=== PATIENT | male | born 1985 | race American Indian/Alaskan Native ===

== ENCOUNTER 2017-03-28 17:28 | Emergency (ER) | payer OTHER ==
[2017-03-28 17:39] VITALS: BP 150/80
--- NOTE | 2017-03-28 17:57 | Emergency Department Report ---
ED Head Trauma HPI - General Chief complaint: Head Injury Stated complaint: HEADACHE Time Seen by Provider: 03/28/17 17:53 Source: patient Mode of arrival: Ambulatory Limitations: No Limitations - Related Data Allergies/Adverse reactions: Allergies Allergy/AdvReac Type Severity Reaction Status Date / Time No Known Allergies Allergy Unverified 03/28/17 17:35 ED Review of Systems ROS: Stated complaint: HEADACHE Other details as noted in HPI Comment: All other systems reviewed and negative Neurological: headache ED Past Medical Hx - Past Medical History Previous Medical History?: No - Surgical History Past Surgical History?: No - Social History Smoking Status: Never Smoker Substance Use Type: None ED Physical Exam - General Limitations: No Limitations General appearance: alert - Head Head exam: Present: atraumatic - Eye Eye exam: Present: PERRL, EOMI Pupils: Present: normal accommodation - ENT ENT exam: Present: mucous membranes moist - Neck Neck exam: Present: normal inspection - Respiratory Respiratory exam: Present: normal lung sounds bilaterally - Cardiovascular Cardiovascular Exam: Present: regular rate - GI/Abdominal GI/Abdominal exam: Present: soft - Rectal Rectal exam: Present: deferred - Extremities Exam Extremities exam: Present: normal inspection - Back Exam Back exam: Present: normal inspection, full ROM - Neurological Exam Neurological exam: Present: alert, oriented X3, CN II-XII intact, normal gait, reflexes normal - Psychiatric Psychiatric exam: Present: normal affect, normal mood - Skin Skin exam: Present: warm, dry, intact, other (SWELLING AND BRUISE L FRONTAL- TEMP AREA) ED Course Vital Signs 03/28/17 17:35 Temperature 98.1 F Pulse Rate 88 Respiratory 18 Rate Blood Pressure 150/80 O2 Sat by Pulse 100 Oximetry - Reevaluation(s) Reevaluation #1: 03/28/17 18:38 TO ER W YOUNG SP HITTING HEAD ON WHILE WORKING ON CARE VSS NEURO INTACT NO LOC AT THE TIME CT NEG Reevaluation #2: 03/28/17 18:51 PT UPDATED DC HOME W DC POC NEURO INTACT - Radiology Data Radiology results: report reviewed - Medical Decision Making CT N - Differential Diagnosis RO SUBDURAL - Core Measures AMI Core Measures Followed: No - NEXUS Criteria Focal neurological deficit present: No Midline spinal tenderness present: No Altered level of consciousness: No Intoxication present: No Distracting injury present: No NEXUS results: C-Spine can be cleared clinically by these results. Imaging is not required. Critical care attestation.: If time is entered above; I have spent that time in minutes in the direct care of this critically ill patient, excluding procedure time. ED Disposition Clinical Impression: CHI (closed head injury) Disposition: DC-01 TO HOME OR SELFCARE Is pt being admited?: No Does the pt Need Aspirin: No Condition: Stable Instructions: Minor Head Injury (ED) Additional Instructions: ICE REST FOLLOW UP PCP IF PERSISTS Referrals: PRIMARY CARE, [Primary Care Provider] - 3-5 Days KATIE MADRID MD [Referring] - 3-5 Days Time of Disposition: 18:39
--- NOTE | 2017-03-28 18:33 | Cat Scan Report ---
FINAL REPORT EXAM: CT HEAD/BRAIN WO CON HISTORY: HEADACHE SP CHI 5 D AGO TECHNIQUE: CT head without contrast PRIORS: None. FINDINGS: No acute intra-axial or extra-axial hemorrhage is identified. There is no evidence of midline shift or mass effect. The ventricles and sulci are within normal limits. Smalls-white matter differentiation is intact. No acute parenchymal abnormalities seen. Bony calvarium is grossly intact. Visualized portions of the mastoids and paranasal sinuses are unremarkable. IMPRESSION: Negative CT head
--- NOTE | 2017-03-28 19:46 | Event Note ---
Date: 03/28/17 ADDENDUM HPI TO ER TODAY P HITTING HIS HEAD ON THURSDAY WHILE WORKING ON HIS CAR NO LOC NO N/V JUST CONCERNED W A SLIGHT YOUNG HE IS PLAYING ON PHONE DURING EXAM HE WAS WORRIED P GETTING ON Bin1 ATE AMBULATORY A/O X 4 HIT HIS HEAD L FRONTAL TEMP AREA NO OTORRHEA OR RHINOREA AT TIME NOTHING MAKES BETTER NOTHING MAKES WORSE PAIN 04/22 NOW
== END 2017-03-28 18:50 | disposition home or self-care (01) ==
LOC: ED 17:28
DX: S09.90XA Unspecified injury of head, initial encounter (principal); X58.XXXA Exposure to other specified factors, initial encounter; Y93.89 Activity, other specified; Y92.89 Other specified places as the place of occurrence of the external cause; Y99.8 Other external cause status
CPT/HCPCS: 70450

== ENCOUNTER 2017-04-22 17:33 | Emergency (ER) | payer OTHER ==
[2017-04-22 17:42] VITALS: BP 132/85
[2017-04-22 18:41] LABS: Bilirubin,Urine NEG (Negative); Blood,Urine NEG (Negative); Color,Urine Straw (Yellow); Nitrite,Urine NEG (Negative); Protein,Urine <15 mg/dL mg/dL (Negative); RBC,Urine < 1.0 /HPF (0.0-6.0); Urobilinogen,Urine < 2.0 mg/dL (<2.0)
[2017-04-22 18:47] LABS: WBC,Urine < 1.0 /HPF (0.0-6.0)
--- NOTE | 2017-04-22 21:45 | Emergency Department Report ---
HPI - General Chief Complaint: Upper Respiratory Infection Time Seen by Provider: 04/22/17 20:35 - HPI HPI: This is a 31-year-old male presents to ED complaining of fever cough and sore throat that started Thursday 5 days ago. Patient states he was recently taking care of this girlfriend that had the flu. Patient states on Thursday and Thursday and Thursday he had fever that resolved. Patient states he had some coughing but that resolved as well. Patient states his minimal sore throat but no other symptoms. He states he is able to tolerate food and fluid appropriately. Patient does states that her extremity eats certain foods such as fast food he feels a bit sick. Patient states both his parents have diabetes and he is worried that he might get diabetes. He denies fevers/chills/nausea/vomiting/abdominal pain/chest pain/shortness of breath/headache/dizziness ED Past Medical Hx - Past Medical History Previous Medical History?: No - Surgical History Past Surgical History?: No - Social History Smoking Status: Never Smoker Substance Use Type: Alcohol - Medications Home Medications: Home Medications Medication Instructions Recorded Confirmed Last Taken Type Ascorbic Acid [Vitamin C] 500 mg PO Q12H #30 tablet 04/22/17 Unknown Rx D-Methorphan/PE/Acetaminophen 1 each PO Q6H #20 tablet 04/22/17 Unknown Rx [Tylenol Cold Multi-Symp Caplet] Zinc 50 mg PO DAILY #5 tablet 04/22/17 Unknown Rx ED Review of Systems ROS: Stated complaint: FEELING SICK Other details as noted in HPI Constitutional: denies: chills, fever Eyes: denies: eye pain, eye discharge, vision change ENT: denies: ear pain, throat pain Respiratory: denies: cough, shortness of breath, wheezing Cardiovascular: denies: chest pain, palpitations Endocrine: no symptoms reported Gastrointestinal: denies: abdominal pain, nausea, diarrhea Genitourinary: denies: urgency, dysuria Musculoskeletal: denies: back pain, joint swelling, arthralgia Skin: denies: rash, lesions Neurological: denies: headache, weakness, paresthesias Psychiatric: denies: anxiety, depression Hematological/Lymphatic: denies: easy bleeding, easy bruising Physical Exam - Physical Exam Vital Signs: Vital Signs 04/22/17 17:38 Temperature 98.4 F Pulse Rate 79 Respiratory 18 Rate Blood Pressure 132/85 O2 Sat by Pulse 98 Oximetry Physical Exam: GENERAL: Alert and oriented x3, no apparent distress, Normal Gait, atraumatic. HEAD: Head is normocephalic and a-traumatic. EYES: Conjunctivae are clear bilaterally, non-erythematous. Pupils are equal, round, and reactive to light and accommodation. NOSE: Nose symetrical, Nontender,Nares appeared normal. MOUTH:Mouth is well hydrated and without lesions. Tonsils nonerythematous or swollen, Uvula midline, Tongue not elevated. Mucous membranes are moist. Posterior pharynx clear, no exudate or lesions. Patent airways. NECK: Supple. Non edematous, No lymphadenopathy or thyromegaly. No C-spine tenderness LUNGS: Symetrical with respiration, No wheezing, no rales or crackles, CTAB. HEART: S1, S2 present, regular rate and rhythm without murmur, no rubs, no gallops. Non tender to palpation BACK: Full range of motion, no spinal tenderness, nontender to palpation. NEUROLOGIC: The patient is cooperative with no focal neurologic deficits. SKIN: Warm and dry, No lesions, No ulceration or induration present. ED Course Vital Signs 04/22/17 17:38 Temperature 98.4 F Pulse Rate 79 Respiratory 18 Rate Blood Pressure 132/85 O2 Sat by Pulse 98 Oximetry ED Medical Decision Making - Medical Decision Making This is a 31-year-old male with no prior medical history presents with upper respiratory infection ED course: Fingerstick the ED, Urinalysis is negative Influenza A and B negative I discussed findings with patient. I discussed with the patient that I will give him a referral for primary care physician to be assessed for diabetes. I discussed with the patient to take vitamin C and seeing to help most immunity. I discussed with the patient to stay hydrated chew plenty of fluids and eat more fruits and vegetables. Vital signs are normal, patient is in no acute distress. Critical care attestation.: If time is entered above; I have spent that time in minutes in the direct care of this critically ill patient, excluding procedure time. ED Disposition Clinical Impression: URI (upper respiratory infection) Qualifiers: URI type: unspecified URI Qualified Code(s): J06.9 - Acute upper respiratory infection, unspecified Disposition: TO HOME OR SELFCARE Is pt being admited?: No Does the pt Need Aspirin: No Condition: Stable Instructions: Upper Respiratory Infection (ED) Additional Instructions: Make sure to follow up with the primary care physician as discussed. Take all your medications as you've been prescribed. If you have any worsening symptoms or develop new symptoms please return to ED immediately. Prescriptions: Ascorbic Acid [Vitamin C] 500 mg PO Q12H #30 tablet D-Methorphan/PE/Acetaminophen [Tylenol Cold Multi-Symp Caplet] 1 each PO Q6H # 20 tablet Zinc 50 mg PO DAILY #5 tablet Referrals: VIDA SANFORD MD [Primary Care Provider] - 3-5 Days STEVE HENRY MD [Referring] - 3-5 Days BILL GONZALEZ MD [Referring] - 3-5 Days ALBERTO HARPER MD [Staff Physician] - 3-5 Days ARPIT HINSON MD [Staff Physician] - 3-5 Days MADELINE HENSON MD [Staff Physician] - 3-5 Days Forms: Work/School Release Form(ED) Time of Disposition: 21:53
== END 2017-04-22 22:43 | disposition home or self-care (01) ==
LOC: ED 17:33
DX: J06.9 Acute upper respiratory infection, unspecified (principal)
CPT/HCPCS: 81001; 87400; 87430; 99283

== ENCOUNTER 2018-01-06 11:22 | Emergency (ER) | payer OTHER ==
[2018-01-06 11:35] VITALS: BP 132/81
[2018-01-06 12:00] LABS: Bilirubin,Urine NEG (Negative); Blood,Urine NEG (Negative); Color,Urine Straw (Yellow); Protein,Urine <15 mg/dL mg/dL (Negative); Urobilinogen,Urine < 2.0 mg/dL (<2.0); WBC,Urine < 1.0 /HPF (0.0-6.0)
--- NOTE | 2018-01-06 12:36 | Emergency Department Report ---
Blank Doc - Documentation Documentation: Patient is a 32-year-old Filip[place] male who is presenting with weakness. Patient states he sometimes gets dizzy and weak after eating certain foods. Patient states feels didn't drink a lot of water and sensation and is improved. Patient states is been present for approximately a year. He sometimes will go several months without symptoms but everything has been returning and is present currently. Patient states he went to [facility] medical clinic yesterday and was told that he may have prediabetes with hemoglobin A1c was not checked and the patient was not started on medications. Patient is here concerned about what to do next. Patient's blood sugar was 134 which is elevated. Patient. Hemoglobin A1c will be checked and will make a decision on further treatment.
--- NOTE | 2018-01-06 14:26 | Emergency Department Report ---
ED General Adult HPI - General Chief complaint: Weakness Stated complaint: HEAVY BREATHING/WEAK/SOB Time Seen by Provider: 01/06/18 12:22 Source: patient Mode of arrival: Ambulatory Limitations: No Limitations - History of Present Illness Initial comments: Patient is a 32-year-old [place] male who is presenting with weakness. Patient states he sometimes gets dizzy and weak after eating certain foods. Patient states feels didn't drink a lot of water and sensation and is improved. Patient states is been present for approximately a year. He sometimes will go several months without symptoms but everything has been returning and is present currently. Patient states he [facility] yesterday and was told that he may have prediabetes with hemoglobin A1c was not checked and the patient was not started on medications. Patient is here concerned about what to do next. Patient's blood sugar was 134 which is elevated. - Related Data Previous Rx's Medication Instructions Recorded Last Taken Type Ascorbic Acid [Vitamin C] 500 mg PO Q12H #30 tablet 04/22/17 Unknown Rx D-Methorphan/PE/Acetaminophen 1 each PO Q6H #20 tablet 04/22/17 Unknown Rx [Tylenol Cold Multi-Symp Caplet] Zinc 50 mg PO DAILY #5 tablet 04/22/17 Unknown Rx metFORMIN [Glucophage] 500 mg PO BID #60 tablet 01/06/18 Unknown Rx Allergies Allergy/AdvReac Type Severity Reaction Status Date / Time No Known Allergies Allergy Unverified 03/28/17 17:35 ED Review of Systems ROS: Stated complaint: HEAVY BREATHING/WEAK/SOB Other details as noted in HPI Comment: All other systems reviewed and negative ED Past Medical Hx - Past Medical History Previous Medical History?: No - Surgical History Past Surgical History?: No - Family History Family history: diabetes (mother and father) - Social History Smoking Status: Never Smoker Substance Use Type: Alcohol - Medications Home Medications: Home Medications Medication Instructions Recorded Confirmed Last Taken Type Ascorbic Acid [Vitamin C] 500 mg PO Q12H #30 tablet 04/22/17 Unknown Rx D-Methorphan/PE/Acetaminophen 1 each PO Q6H #20 tablet 04/22/17 Unknown Rx [Tylenol Cold Multi-Symp Caplet] Zinc 50 mg PO DAILY #5 tablet 04/22/17 Unknown Rx metFORMIN [Glucophage] 500 mg PO BID #60 tablet 01/06/18 Unknown Rx ED Physical Exam - General Limitations: No Limitations General appearance: alert, in no apparent distress - Head Head exam: Present: atraumatic, normocephalic - Eye Eye exam: Present: normal appearance - ENT ENT exam: Present: mucous membranes moist - Neck Neck exam: Present: normal inspection - Respiratory Respiratory exam: Present: normal lung sounds bilaterally. Absent: respiratory distress, wheezes, rales - Cardiovascular Cardiovascular Exam: Present: regular rate, normal rhythm. Absent: systolic murmur, diastolic murmur, rubs, gallop - GI/Abdominal GI/Abdominal exam: Present: soft, normal bowel sounds. Absent: distended, tenderness, guarding - Rectal Rectal exam: Present: deferred - Extremities Exam Extremities exam: Present: normal inspection - Back Exam Back exam: Present: normal inspection - Neurological Exam Neurological exam: Present: alert, oriented X3 - Psychiatric Psychiatric exam: Present: normal affect, normal mood - Skin Skin exam: Present: warm, dry, intact, normal color. Absent: rash ED Course Vital Signs 01/06/18 11:32 Temperature 98.7 F Pulse Rate 72 Respiratory 18 Rate Blood Pressure 132/81 O2 Sat by Pulse 98 Oximetry ED Medical Decision Making - Lab Data Lab Results 01/06/18 01/06/18 01/06/18 Range/Units 11:30 11:51 12:37 POC Glucose 134 H (70-105) Hemoglobin A1c 6.2 H (4-6) % Urine Color Straw (Yellow) Urine Turbidity Clear (Clear) Urine pH 6.0 (5.0-7.0) Ur Specific [place] 1.002 L (1.003-1.030) Urine Protein <15 mg/dl (Negative) mg/dL Urine Glucose (UA) Neg (Negative) mg/dL Urine Ketones Neg (Negative) mg/dL Urine Blood Neg (Negative) Urine Nitrite Neg (Negative) Urine Bilirubin Neg (Negative) Urine Urobilinogen < 2.0 (<2.0) mg/dL Ur Leukocyte Esterase Neg (Negative) Urine WBC (Auto) < 1.0 (0.0-6.0) /HPF Urine RBC (Auto) 1.0 (0.0-6.0) /HPF - Medical Decision Making Patient's hemoglobin A1c is greater than 6. Specifically was 6.2 which is put him in the prediabetes category. Patient be started on metformin. Did discuss with the patient about diet and weight loss. Patient states partially 6 months ago when he was feeling approximately how he does now he did lose 10 pounds and felt good for several months but he says that he is again weight back and has started feeling ill again. Patient also referred to primary care for follow-up. Critical care attestation.: If time is entered above; I have spent that time in minutes in the direct care of this critically ill patient, excluding procedure time. ED Disposition Clinical Impression: Pre-diabetes Disposition: DC- TO HOME OR SELFCARE Is pt being admited?: No Does the pt Need Aspirin: No Condition: Stable Instructions: How to Check Your Blood Sugar (ED), Diabetes Mellitus Type 2 in Adults (ED) Prescriptions: metFORMIN [Glucophage] 500 mg PO BID #60 tablet Referrals: VIKY MORA MD [Staff Physician] - 3-5 Days Time of Disposition: 14:26
== END 2018-01-06 14:36 | disposition home or self-care (01) ==
LOC: ED 11:22
DX: R73.03 Prediabetes (principal)
CPT/HCPCS: 36415; 81001; 82962; 83036; 93005; 93010; 99283